=== PATIENT | female | born 1965 | race Two or more races ===

== ENCOUNTER 2019-02-16 21:02 | Inpatient (IN) | payer OTHER ==
[~2019-02-16] VITALS: Ht 154.9 cm; Wt 55.3 kg
== END 2019-02-19 18:54 | disposition home or self-care (01) | DRG 392 ==
LOC: ER 21:02 → SEC-K 02-17 08:38 → MEDI 02-17 08:38
PROVIDERS: ADMIT Internal Medicine
DX: K57.32 Diverticulitis of large intestine without perforation or abscess without bleeding (principal); R10.32 Left lower quadrant pain

== ENCOUNTER 2022-02-11 11:32 | Emergency (ER) | payer OTHER ==
[~2022-02-11] VITALS: Ht 154.9 cm; Wt 56.7 kg
[2022-02-11] MEDS ORDERED: PROGESTERONE200 MG PO (11:41)
[2022-02-11] MEDS ORDERED: PROGESTERONE100 M1 PO (11:41)
[2022-02-11] MEDS ORDERED: ORPHENADRINE C100 MG PO (14:26)
[2022-02-11] MEDS ORDERED: DICLOFENAC POTA50 MG PO (14:26)
== END 2022-02-11 14:41 | disposition home or self-care (01) ==
LOC: ER 11:32
DX: M79.661 Pain in right lower leg (principal); M79.89 Other specified soft tissue disorders; Z88.8 Allergy status to other drugs, medicaments and biological substances

== ENCOUNTER 2023-03-22 10:35 | Inpatient (IN) | payer OTHER ==
[~2023-03-22] VITALS: Ht 154.9 cm; Wt 57.2 kg
[~2023-03-22 10:35] MED LIST: DICLOFENAC POTA50 MG PO; ORPHENADRINE C100 MG PO; PROGESTERONE100 M1 PO; PROGESTERONE200 MG PO
--- NOTE | 2023-03-22 10:57 | NUR ---
SE RECIBE PTE. ALERTA Y ORIENTADA X 3. LA MISMA REFIERE DOLOR ABDOMINAL HACE DOS BURRELL. SE MICHAEL S/V Y SE COLOCA EN PASILLO.
--- NOTE | 2023-03-22 11:22 | NUR ---
SE ORIENTA PTE SOBRE TX A SEGUIR, LA MISMA REFIERE ENTENDER. SE MICHAEL MUESTRAS DE LAB BAJO MEDIDAS ASEPTICAS Y SE ADMINISTRA MED [facility]ICA. PEND CT PO, SE HACE ENTREGA DE CONTRASTES
[2023-03-22 11:53] LABS: HEMATOCRIT 38.6 % (36.0-45.00); HEMOGLOBIN 13.2 g/dL (12.0-15.00); MEAN CELL VOLUME 91.5 fL (80.00-100.00); MEAN CORPUSCULAR HEMOGLOBIN 31.3 pg (27.00-32.0); MEAN CORPUSCULAR HGB CONC 34.2 g/dl (32.0-36.0); PLATELET COUNT 295 K/uL (150-450); RED BLOOD COUNT 4.22 M/uL (4.00-6.00); RED CELL DISTRIBUTION WIDTH 13.7 % (11.5-14.5)
[2023-03-22 12:13] LABS: CALCIUM 9.5 mg/dL (8.5-10.1); CREATININE SERUM 0.74 mg/dL (0.55-1.02); GFR 81.18; POTASSIUM 4.08 mEq/L (3.5-5.1)
[2023-03-22 12:20] LABS: PH,URINE 5.5 (5.0-8.0); URINE APPEARANCE Clear; URINE BILIRRUBIN Negative (NEGATIVE); URINE BLOOD Negative; URINE COLOR Yellow; URINE GLUCOSE Negative (NEGATIVE); URINE LEUKOCYTE Negative; URINE NITRATE Negative; URINE PROTEIN Negative (NEGATIVE); URINE UROBILINOGEN 0.2 E.U./dl
[2023-03-22 12:30] LABS: URINE EPITHELIAL CELLS 1.3 uL (0.0-38.8); URINE WBC 1.6 uL (0.0-23.2)
[2023-03-23 08:23] LABS: ALBUMIN 2.9 gm/dL (3.4-5.0); BILIRUBIN TOTAL 0.41 mg/dL (0.3-1.2); BILIRUBIN,CONJUGATED 0.13 mg/dL (0.0-0.2); BILIRUBIN,UNCONJUGATED 0.28 mg/dL (0.0-0.6); CALCIUM 8.1 mg/dL (8.5-10.1); CHOL HDL RATIO 2.8 (0-5.0); CREATININE SERUM 0.66 mg/dL (0.55-1.02); GFR 92.64; GLOBULINA 3.1 G/DL (2.4-3.5); POTASSIUM 3.7 mEq/L (3.5-5.1)
[2023-03-23 08:25] LABS: C-REACTIVE PROTEIN 13.8 MG/DL (0.00-0.29)
[2023-03-23 09:10] LABS: HEMOGLOBIN 11.2 g/dL (12.0-15.00); MEAN CORPUSCULAR HEMOGLOBIN 31.4 pg (27.00-32.0); MEAN CORPUSCULAR HGB CONC 33.8 g/dl (32.0-36.0); PLATELET COUNT 224 K/uL (150-450); RED BLOOD COUNT 3.55 M/uL (4.00-6.00); RED CELL DISTRIBUTION WIDTH 13.5 % (11.5-14.5)
[2023-03-23 09:22] LABS: INR 1.06; PROTHROMBIN TIME 11.1 SECONDS (9.0-11.5)
[2023-03-23 09:25] LABS: PARTIAL THROMBOPLASTIN TIME 44.4 SECONDS (22.0-34.0)
[2023-03-23 09:50] LABS: ERYTHROCYTE SEDIMENTATION RATE 52 mm/hr
[2023-03-23 10:33] LABS: URINE APPEARANCE Clear; URINE BILIRRUBIN Negative (NEGATIVE); URINE BLOOD Negative; URINE COLOR Yellow; URINE GLUCOSE Negative (NEGATIVE); URINE LEUKOCYTE Negative; URINE NITRATE Negative; URINE PROTEIN Negative (NEGATIVE); URINE UROBILINOGEN 0.2 E.U./dl
[2023-03-23 10:36] LABS: URINE BACTERIA 70.5 uL (0.0-1933); URINE RBC 7.3 uL (0.0-20.8); URINE WBC 5.5 uL (0.0-23.2)
[2023-03-26 05:00] LABS: MEAN CELL VOLUME 91.8 fL (80.00-100.00); MEAN CORPUSCULAR HEMOGLOBIN 32.3 pg (27.00-32.0); MEAN CORPUSCULAR HGB CONC 35.2 g/dl (32.0-36.0); PLATELET COUNT 240 K/uL (150-450); RED BLOOD COUNT 3.37 M/uL (4.00-6.00); RED CELL DISTRIBUTION WIDTH 13.2 % (11.5-14.5)
[2023-03-26 05:01] LABS: HEMOGLOBIN 10.9 g/dL (12.0-15.00)
== END 2023-03-26 14:38 | disposition home or self-care (01) | DRG 392 ==
LOC: ER 10:35 → MEDI 18:50
PROVIDERS: Emergency Medicine; General Practice; ADMIT Internal Medicine; ATTEND Internal Medicine
PROC: BW21YZZ Computerized Tomography (CT Scan) of Abdomen and Pelvis using Other Contrast (ICD-10-PCS; principal; 2023-03-22)
DX: K57.32 Diverticulitis of large intestine without perforation or abscess without bleeding (principal); D72.829 Elevated white blood cell count, unspecified

== ENCOUNTER 2025-04-24 13:29 | Inpatient (IN) | payer OTHER ==
[~2025-04-24] VITALS: Ht 154.9 cm; Wt 59.0 kg
[2025-04-24] MEDS ORDERED: ROSUVASTATIN CAL5 MG (15:36)
--- NOTE | 2025-04-24 15:45 | NUR ---
SE RECIBE PACIENTE ALERTA Y ORIENTADA X 3 ESFERAS LA CUAL INDICA QUE DESDE JUEVES PRESENTA DOLOR ABDOMINAL. PACIENTE REFIERE QUE TIENE HX DE DIVERTICULOS.
[2025-04-24] MEDS ORDERED: 0.9 % SODIUM CHLORIDE 1,000 ML IV SCH (16:30)
[2025-04-24] MEDS ORDERED: METRONIDAZOLE/SODIUM CHLORIDE 500 MG/100 ML PIGGYBACK IV ONE ×2 (16:45→17:08)
[2025-04-24] MEDS ORDERED: FAMOTIDINE/PF 20 MG/2 ML VIAL IV ONE (16:45)
[2025-04-24] MEDS ORDERED: KETOROLAC TROMETHAMINE 30 MG VIAL IV ONE (16:45)
[2025-04-24] MEDS ORDERED: CIPROFLOXACIN IN 5 % DEXTROSE 400 MG/200 ML PIGGYBAG IV ONE ×2 (16:45→17:08)
[2025-04-24] MEDS ORDERED: KETOROLAC TROMETHAMINE 30 MG VIAL ONE (17:07)
[2025-04-24] MEDS ORDERED: FAMOTIDINE/PF 20 MG/2 ML VIAL ONE (17:08)
[2025-04-24 18:30] LABS: BASO % 0.2 % (0.1-1.2); EOS # 0.00 (0.04-0.54); EOS % 0.0 % (0.7-7.0); LYMPH # 1.77 (1.18-3.74); LYMPH % 9.2 % (19.3-53.1); MEAN PLATELET VOLUME 9.80 fl (9.4-12.4); MONO # 1.34 (0.24-0.82); MONO % 7.0 % (4.7-12.5); NEUT # 15.93 (1.56-6.13); NEUT % 83.2 % (34.0-71.1); RED CELL DISTRIBUTION WIDTH 13.2 % (11.6-14.4)
[2025-04-24 18:52] LABS: URINE APPEARANCE Clear; URINE BILIRRUBIN Negative (NEGATIVE); URINE BLOOD Trace; URINE COLOR Yellow; URINE GLUCOSE Negative (NEGATIVE); URINE KETONE Negative (NEGATIVE); URINE LEUKOCYTE Negative; URINE NITRATE Negative; URINE PROTEIN Negative (NEGATIVE); URINE UROBILINOGEN 0.2 E.U./dl
[2025-04-24 18:58] LABS: URINE BACTERIA 69.6 uL (0.0-1933); URINE EPITHELIAL CELLS 4.3 uL (0.0-38.8); URINE RBC 17.2 uL (0.0-20.8); URINE WBC 2.7 uL (0.0-23.2)
[2025-04-24 19:03] LABS: TYPE CELLS SQUAMOUS; URINE CAST 0.00 uL (0.0-1.40)
[2025-04-24 19:19] LABS: INR 1.03
[2025-04-24 19:22] LABS: ALT/SGPT 27.0 U/L (12-78); AST/SGOT 20.0 U/L (15-37); BILIRUBIN TOTAL 0.32 mg/dL (0.3-1.2); BUN CREA RATIO 16.0 (7.0-25.0); CREATININE SERUM 0.75 mg/dL (0.55-1.02); GFR 79.37; GLOBULINA 3.7 G/DL (2.4-3.5); GLUCOSE FASTING 189.0 mg/dL (65-100); OSMOLALITY SERUM 282.0 MOSM/KG (275-295)
--- NOTE | 2025-04-24 20:17 | NUR ---
SE ORIENT APACIENTE SOBRE TX MEDICO EL CUAL INDICA ENTEDNER Y ACEPTAR. SE COLECTAN MUESTRAS DE LABORATORIOS Y SE REALIZA CANALIZACION BAJOI MEDIDAS ASEPTICAS. SE ADMINISTRAN MEDICAMENTOS [facility]. SE NOTIFICA A PERSONAL DE CT.
[2025-04-24] MEDS ORDERED: KETOROLAC TROMETHAMINE 30 MG VIAL IU PRN (21:30)
[2025-04-24] MEDS ORDERED: ONDANSETRON HCL 4 MG in 0.9 % SODIUM CHLORIDE 50 ML IV PRN (21:30)
[2025-04-24] MEDS ORDERED: MORPHINE SULFATE 2 MG/ML SYRINGE IV PRN (21:30)
[2025-04-24] MEDS ORDERED: ACETAMINOPHEN 325 MG TABLET PO PRN (21:30)
[2025-04-25 00:11] VITALS: BP 160/70
[2025-04-25] MEDS ORDERED: KETOROLAC TROMETHAMINE 30 MG VIAL ONE (00:32)
[2025-04-25 04:30] VITALS: BP 95/55; O2SAT 97
[2025-04-25] MEDS ORDERED: PIPERACILLIN/TAZOBACTAM SODIUM 3.375 GM in 0.9 % SODIUM CHLORIDE 100 ML IV SCH (06:00)
[2025-04-25 08:00] VITALS: BP 104/62; O2SAT 97
[2025-04-25] MEDS ORDERED: FAMOTIDINE/PF 20 MG/2 ML VIAL IV SCH (09:00)
[2025-04-25] MEDS ORDERED: ACETAMINOPHEN 500 MG GEL..CAP PO PRN (15:30)
[2025-04-25 16:00] VITALS: BP 122/70; O2SAT 97
[2025-04-26 00:05] VITALS: BP 112/63; O2SAT 97
[2025-04-26 06:56] LABS: BASO % 0.4 % (0.1-1.2); EOS # 0.14 (0.04-0.54); EOS % 1.4 % (0.7-7.0); LYMPH # 2.15 (1.18-3.74); LYMPH % 20.9 % (19.3-53.1); MEAN PLATELET VOLUME 10.00 fl (9.4-12.4); MONO # 1.11 (0.24-0.82); MONO % 10.8 % (4.7-12.5); NEUT # 6.83 (1.56-6.13); NEUT % 66.1 % (34.0-71.1); RED CELL DISTRIBUTION WIDTH 13.1 % (11.6-14.4)
[2025-04-26 08:18] VITALS: BP 116/65; O2SAT 97
[2025-04-26 16:44] VITALS: BP 125/54; O2SAT 99
[2025-04-26] MEDS ORDERED: FAMOTIDINE/PF 20 MG/2 ML VIAL IV SCH (21:00)
[2025-04-27 00:30] VITALS: BP 128/71; O2SAT 100
[2025-04-27 08:30] VITALS: BP 122/69; O2SAT 99
== END 2025-04-27 13:57 | disposition home or self-care (01) | DRG 392 ==
LOC: ER 13:29 → SURH 21:25 → SEC-K 21:25 → SURH 04-25 02:04
PROVIDERS: Internal Medicine; Student in an Organized Health Care Education/Training Program; ADMIT Internal Medicine; ATTEND Internal Medicine
PROC: BW21YZZ Computerized Tomography (CT Scan) of Abdomen and Pelvis using Other Contrast (ICD-10-PCS; principal; 2025-04-24)
DX: K57.32 Diverticulitis of large intestine without perforation or abscess without bleeding (principal); N39.0 Urinary tract infection, site not specified; K52.9 Noninfective gastroenteritis and colitis, unspecified; E78.5 Hyperlipidemia, unspecified